=== PATIENT | male | born 1950 | race Caucasian/White ===

== ENCOUNTER → 2016-11-24 | Outpatient (CLI) | payer MEDICARE, BC ==
[~2016-11-24] MED LIST: ACET-2890 PO; ASCO10007 PO; BACL20TA PO; CHOL100092 PO; LACO50TA2 PO; LEVO100T12 PO; MIRT15TA PO; TOLT4CAP PO; ZIPR20CA2 PO
--- NOTE | 2016-11-24 11:57 | DI ---
Indication:ITS.REASON: J69.8 Pneumonitis due to inhalation of other solids and liquids, Procedure:UPPER GI CONTRAST X 1 Manager Dialysis KUB: Two production operator abdominal radiographs were obtained. Patchy infiltrate in the right lower lobe, consistent with aspiration pneumonia. Residual contrast from a prior contrast study from a different facility is visualized throughout the colon. The remainder of the production operator imaging is negative. UPPER GI: Technique:The patient swallowed thin barium with a moderate amount of difficulty. Fluoroscopic imaging was obtained in the supine AP, LPO, RPO, and right lateral positions. Findings:Aspiration is noted during several swallows. 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 The stricture has a benign appearance. Contrast flows through this stricture with a minimal amount of difficulty. There is a small sliding esophageal hiatal hernia. The remainder of the esophagus, stomach, and duodenum are negative. Impression: 1. Probable right lower lobe aspiration pneumonia. 2. Long segment, smoothly marginated, benign-appearing stricture in the distal third of the esophagus. Recommend EGD for further evaluation. 3. Aspiration. 4. Small sliding esophageal hiatal hernia. These results were telephoned to Dr. Carlos Knight's office at the conclusion of this exam. Fluoroscopy dose: 108.78 mGy (Cumulative air kerma) Arnaldo Barajas RPA/CHRISTINA performed this under my direct supervision. .
== END ==
LOC: IMA 07:56
PROVIDERS: ATTEND Family Medicine
DX: J69.8 Pneumonitis due to inhalation of other solids and liquids (principal); K22.2 Esophageal obstruction; K44.9 Diaphragmatic hernia without obstruction or gangrene; R91.8 Other nonspecific abnormal finding of lung field
CPT/HCPCS: 74240